=== PATIENT | female | born 1960 | race African-American/Black ===

== ENCOUNTER 2018-05-27 15:50 | Inpatient (IN) | payer MEDICAID, OTHER ==
[~2018-05-27] VITALS: Ht 162.6 cm; Wt 61.2 kg
[2018-05-27] MEDS ORDERED: ASPIRIN 81MG TABLET PO ONE (16:15)
[2018-05-27 17:11] LABS: BASOPHILS % 0.9 % (0.0-2.0); EOSINOPHILS % 0.6 % (0.0-5.0); HEMOGLOBIN. 11.8 g/dL (12.0-16.0); LYMPHOCYTES % 21.4 % (20.0-50.0); MEAN CORPUSCULAR HEMOGLOBIN 26.1 pg (28.0-32.0); MEAN PLATELET VOLUME 8.1 fl (7.4-10.4); MONOCYTES % 13.1 % (2.0-8.0); PLATELET 219 x1000/uL (130-400); RED BLOOD CELL COUNT 4.51 mill/uL (4.2-5.4); RED CELL DISTRIBUTION WIDTH 18.3 % (11.6-14.6)
[2018-05-27 17:20] LABS: CHLORIDE 104 mEq/L (98-107)
[2018-05-27] MEDS ORDERED: FUROSEMIDE 40MG/4ML VIAL IVP ONE (22:00)
[2018-05-28] VITALS: BP 156/86
[2018-05-28] MEDS ORDERED: POTA20TA82 MT (01:16)
[2018-05-28] MEDS ORDERED: ABIL5 MT (01:16)
[2018-05-28] MEDS ORDERED: DOCU100T MT (01:16)
[2018-05-28] MEDS ORDERED: ALBU18HF2 IH (01:16)
[2018-05-28] MEDS ORDERED: ASPI-1158 MT (01:16)
[2018-05-28] MEDS ORDERED: FURO40TA5 MT (01:16)
[2018-05-28] MEDS ORDERED: MULT-1146 MT (01:16)
[2018-05-28] MEDS ORDERED: METF-815 MT (01:16)
[2018-05-28] MEDS ORDERED: CARV3.1242 MT (01:16)
[2018-05-28] MEDS ORDERED: ENAL10TA MT (01:16)
[2018-05-28] MEDS ORDERED: GABA-531 MT (01:16)
[2018-05-28] MEDS ORDERED: FERR325T6 MT (01:16)
[2018-05-28] MEDS ORDERED: ONDANSETRON HCL 4MG/2ML INJ IV PRN (03:30)
[2018-05-28] MEDS ORDERED: ACETAMINOPHEN 650MG/20.3ML UDC PO PRN (03:30)
[2018-05-28] MEDS ORDERED: DEXTROSE 50% WATER 50ML SYRINGE IV PRN (03:30)
[2018-05-28 04:00] VITALS: BP 137/86
[2018-05-28] MEDS ORDERED: IPRATROPIUM/ALBUTEROL 0.5-3(2.5)MG/3ML NEB HHN SCH ×2 (04:00)
[2018-05-28] MEDS: IPRATROPIUM/ALBUTEROL 0.5-3(2.5)MG/3ML NEB HHN SCH ×5 (04:21→21:03)
[2018-05-28] MEDS: INSULIN LISPRO 100 UNITS/ML SUBCUT SCH ×4 (05:28→21:00)
[2018-05-28] MEDS: GABAPENTIN 300MG CAPSULE PO SCH ×3 (05:28→21:24)
[2018-05-28] MEDS: BLOOD SUGAR DIAGNOSTIC STRIP TEST SCH ×4 (05:28→21:24)
[2018-05-28] MEDS: FUROSEMIDE 40MG/4ML VIAL IVP SCH ×3 (05:29→18:03)
[2018-05-28 08:00] VITALS: BP 127/86
[2018-05-28 08:20] LABS: BASOPHILS % 1.1 % (0.0-2.0); EOSINOPHILS % 1.2 % (0.0-5.0); HEMATOCRIT. 34.5 % (36.0-48.0); HEMOGLOBIN. 10.9 g/dL (12.0-16.0); LYMPHOCYTES % 25.5 % (20.0-50.0); MEAN CORPUSCULAR HEMOGLOBIN 25.8 pg (28.0-32.0); MEAN CORPUSCULAR VOLUME 81.5 fL (81.0-99.0); MONOCYTES % 13.4 % (2.0-8.0); NEUTROPHILS % 58.8 % (40.0-76.0); PLATELET 238 x1000/uL (130-400); RED BLOOD CELL COUNT 4.23 mill/uL (4.2-5.4); RED CELL DISTRIBUTION WIDTH 18.7 % (11.6-14.6)
[2018-05-28 08:27] LABS: CHLORIDE 104 mEq/L (98-107)
[2018-05-28] MEDS ORDERED: METFORMIN HCL 500MG TABLET PO SCH (09:00)
[2018-05-28] MEDS ORDERED: POTASSIUM CHLORIDE 20MEQ TABLET SR PO SCH (09:00)
[2018-05-28] MEDS: FERROUS SULFATE 325MG TABLET PO SCH ×2 (09:50→18:02)
[2018-05-28] MEDS: MULTIVITAMINS,THER W-MINERALS TABLET PO SCH (09:50)
[2018-05-28] MEDS: ASPIRIN 81MG TABLET PO SCH (09:51)
[2018-05-28] MEDS: ENALAPRIL 5MG TABLET PO SCH (09:51)
[2018-05-28] MEDS: DOCUSATE SODIUM 100MG CAPSULE PO SCH ×2 (09:51→18:02)
[2018-05-28] MEDS: ENOXAPARIN 40MG/0.4ML SYR SUBCUT SCH (09:59)
[2018-05-28 12:00] VITALS: BP 141/89
[2018-05-28 16:00] VITALS: BP 150/100
[2018-05-28] MEDS: POTASSIUM CHLORIDE 20MEQ TABLET SR PO SCH (18:02)
[2018-05-28 20:00] VITALS: BP 135/97
[2018-05-29] VITALS: BP 122/81
[2018-05-29] MEDS: IPRATROPIUM/ALBUTEROL 0.5-3(2.5)MG/3ML NEB HHN SCH ×6 (00:58→21:40)
[2018-05-29 04:00] VITALS: BP 122/81
[2018-05-29] MEDS: GABAPENTIN 300MG CAPSULE PO SCH ×3 (05:42→21:39)
[2018-05-29] MEDS: FUROSEMIDE 40MG/4ML VIAL IVP SCH ×2 (05:42→17:25)
[2018-05-29] MEDS: BLOOD SUGAR DIAGNOSTIC STRIP TEST SCH ×4 (05:43→21:39)
[2018-05-29] MEDS: INSULIN LISPRO 100 UNITS/ML SUBCUT SCH ×4 (05:51→21:00)
[2018-05-29 07:20] LABS: BASOPHILS % 1.5 % (0.0-2.0); EOSINOPHILS % 1.7 % (0.0-5.0); HEMATOCRIT. 34.7 % (36.0-48.0); LYMPHOCYTES % 34.2 % (20.0-50.0); MEAN CORPUSCULAR HEMOGLOBIN 25.7 pg (28.0-32.0); MEAN CORPUSCULAR VOLUME 81.4 fL (81.0-99.0); MONOCYTES % 11.9 % (2.0-8.0); NEUTROPHILS % 50.7 % (40.0-76.0); RED BLOOD CELL COUNT 4.27 mill/uL (4.2-5.4); RED CELL DISTRIBUTION WIDTH 18.1 % (11.6-14.6)
[2018-05-29 08:00] VITALS: BP 135/84
[2018-05-29] MEDS: DOCUSATE SODIUM 100MG CAPSULE PO SCH ×2 (09:08→17:25)
[2018-05-29] MEDS: FERROUS SULFATE 325MG TABLET PO SCH ×2 (09:09→17:25)
[2018-05-29] MEDS: ENOXAPARIN 40MG/0.4ML SYR SUBCUT SCH (09:09)
[2018-05-29] MEDS: POTASSIUM CHLORIDE 20MEQ TABLET SR PO SCH ×2 (09:09→17:25)
[2018-05-29] MEDS: ASPIRIN 81MG TABLET PO SCH (09:09)
[2018-05-29] MEDS: MULTIVITAMINS,THER W-MINERALS TABLET PO SCH (09:09)
[2018-05-29] MEDS: ENALAPRIL 5MG TABLET PO SCH (09:09)
[2018-05-29 09:28] LABS: PLATELET 223 x1000/uL (130-400)
[2018-05-29 10:11] LABS: CHLORIDE 99 mEq/L (98-107)
[2018-05-29 12:59] VITALS: BP 112/58
[2018-05-29 16:00] VITALS: BP 132/84
[2018-05-29 20:00] VITALS: BP 133/75
[2018-05-30] VITALS: BP 138/86
[2018-05-30] MEDS: IPRATROPIUM/ALBUTEROL 0.5-3(2.5)MG/3ML NEB HHN SCH ×6 (00:34→20:44)
[2018-05-30 04:00] VITALS: BP 138/90
[2018-05-30] MEDS: BLOOD SUGAR DIAGNOSTIC STRIP TEST SCH ×4 (06:51→21:26)
[2018-05-30] MEDS: GABAPENTIN 300MG CAPSULE PO SCH ×3 (06:51→21:28)
[2018-05-30] MEDS: FUROSEMIDE 40MG/4ML VIAL IVP SCH ×2 (06:52→17:58)
[2018-05-30] MEDS: INSULIN LISPRO 100 UNITS/ML SUBCUT SCH ×4 (06:52→21:00)
[2018-05-30 07:21] LABS: CHLORIDE 96 mEq/L (98-107)
[2018-05-30 07:23] LABS: BASOPHILS % 0.6 % (0.0-2.0); EOSINOPHILS % 1.6 % (0.0-5.0); HEMATOCRIT. 31.4 % (36.0-48.0); HEMOGLOBIN. 10.2 g/dL (12.0-16.0); MEAN CORPUSCULAR HEMOGLOBIN 26.1 pg (28.0-32.0); MEAN CORPUSCULAR VOLUME 80.6 fL (81.0-99.0); MEAN PLATELET VOLUME 8.1 fl (7.4-10.4); NEUTROPHILS % 53.8 % (40.0-76.0); PLATELET 224 x1000/uL (130-400); RED CELL DISTRIBUTION WIDTH 17.7 % (11.6-14.6)
[2018-05-30 08:00] VITALS: BP 133/73
[2018-05-30] MEDS: DOCUSATE SODIUM 100MG CAPSULE PO SCH ×2 (08:36→17:58)
[2018-05-30] MEDS: FERROUS SULFATE 325MG TABLET PO SCH ×2 (08:36→17:58)
[2018-05-30] MEDS: ASPIRIN 81MG TABLET PO SCH (08:36)
[2018-05-30] MEDS: ENALAPRIL 5MG TABLET PO SCH (08:36)
[2018-05-30] MEDS: MULTIVITAMINS,THER W-MINERALS TABLET PO SCH (08:36)
[2018-05-30] MEDS: ENOXAPARIN 40MG/0.4ML SYR SUBCUT SCH (08:37)
[2018-05-30] MEDS: POTASSIUM CHLORIDE 20MEQ TABLET SR PO SCH ×2 (08:46→17:58)
[2018-05-30] MEDS ORDERED: CARVEDILOL 3.125 MG TABLET PO NR (09:30)
[2018-05-30 12:00] VITALS: BP 127/78
[2018-05-30 16:00] VITALS: BP 127/83
[2018-05-30 17:24] LABS: *AMPHETAMINES SCREEN URINE NEGATIVE (NEGATIVE); *BARBITURATES SCREEN URINE NEGATIVE (NEGATIVE); *BENZODIAZEPINES SCREEN URINE NEGATIVE (NEGATIVE); *COCAINE SCREEN URINE NEGATIVE (NEGATIVE); METHADONE URINE SCREEN NEGATIVE (NEGATIVE); OPIATES URINE SCREEN NEGATIVE (NEGATIVE)
[2018-05-30 17:25] LABS: CANNABINOID URINE SCREEN NEGATIVE (NEGATIVE); PHENCYCLIDINE URINE SCREEN NEGATIVE (NEGATIVE)
[2018-05-30 20:00] VITALS: BP 126/81
[2018-05-30] MEDS: CARVEDILOL 3.125 MG TABLET PO SCH (21:26)
[2018-05-31] VITALS: BP_SYST 128; BP_SYST 130; BP_DIAS 64; BP_DIAS 78
[2018-05-31] MEDS: IPRATROPIUM/ALBUTEROL 0.5-3(2.5)MG/3ML NEB HHN SCH ×6 (00:29→20:40)
[2018-05-31 04:00] VITALS: BP 124/70
[2018-05-31] MEDS: BLOOD SUGAR DIAGNOSTIC STRIP TEST SCH ×4 (06:13→21:06)
[2018-05-31] MEDS: GABAPENTIN 300MG CAPSULE PO SCH ×3 (06:13→21:06)
[2018-05-31] MEDS: INSULIN LISPRO 100 UNITS/ML SUBCUT SCH ×4 (06:13→21:36)
[2018-05-31] MEDS: FUROSEMIDE 40MG/4ML VIAL IVP SCH ×2 (06:16→17:41)
[2018-05-31 08:00] VITALS: BP 111/62
[2018-05-31] MEDS: POTASSIUM CHLORIDE 20MEQ TABLET SR PO SCH ×2 (09:00→17:41)
[2018-05-31] MEDS: MULTIVITAMINS,THER W-MINERALS TABLET PO SCH (09:00)
[2018-05-31] MEDS: CARVEDILOL 3.125 MG TABLET PO SCH ×2 (09:00→21:06)
[2018-05-31] MEDS: FERROUS SULFATE 325MG TABLET PO SCH ×2 (09:00→17:41)
[2018-05-31] MEDS: ENALAPRIL 5MG TABLET PO SCH (09:00)
[2018-05-31] MEDS: DOCUSATE SODIUM 100MG CAPSULE PO SCH ×2 (09:00→17:00)
[2018-05-31] MEDS: ASPIRIN 81MG TABLET PO SCH (09:00)
[2018-05-31] MEDS: ENOXAPARIN 40MG/0.4ML SYR SUBCUT SCH (09:01)
[2018-05-31 12:00] VITALS: BP 137/86
[2018-05-31 16:00] VITALS: BP 130/85
[2018-05-31 20:00] VITALS: BP 136/76
[2018-06-01] VITALS: BP 128/64
[2018-06-01] MEDS: IPRATROPIUM/ALBUTEROL 0.5-3(2.5)MG/3ML NEB HHN SCH ×7 (00:38→23:22)
[2018-06-01 04:00] VITALS: BP 118/67
[2018-06-01] MEDS: INSULIN LISPRO 100 UNITS/ML SUBCUT SCH ×4 (06:15→20:34)
[2018-06-01] MEDS: FUROSEMIDE 40MG/4ML VIAL IVP SCH ×2 (06:15→18:20)
[2018-06-01] MEDS: BLOOD SUGAR DIAGNOSTIC STRIP TEST SCH ×4 (06:15→20:34)
[2018-06-01] MEDS: GABAPENTIN 300MG CAPSULE PO SCH ×3 (06:15→20:34)
[2018-06-01 06:44] LABS: HEMATOCRIT. 33.4 % (36.0-48.0); HEMOGLOBIN. 10.8 g/dL (12.0-16.0); MEAN CORPUSCULAR VOLUME 80.1 fL (81.0-99.0); MEAN PLATELET VOLUME 7.9 fl (7.4-10.4); PLATELET 228 x1000/uL (130-400); RED BLOOD CELL COUNT 4.17 mill/uL (4.2-5.4); RED CELL DISTRIBUTION WIDTH 17.9 % (11.6-14.6)
[2018-06-01 06:50] LABS: CHLORIDE 97 mEq/L (98-107)
[2018-06-01 08:00] VITALS: BP 122/73
[2018-06-01] MEDS: MULTIVITAMINS,THER W-MINERALS TABLET PO SCH (09:11)
[2018-06-01] MEDS: ENOXAPARIN 40MG/0.4ML SYR SUBCUT SCH (09:11)
[2018-06-01] MEDS: ENALAPRIL 5MG TABLET PO SCH (09:11)
[2018-06-01] MEDS: ASPIRIN 81MG TABLET PO SCH (09:11)
[2018-06-01] MEDS: FERROUS SULFATE 325MG TABLET PO SCH ×2 (09:11→18:19)
[2018-06-01] MEDS: POTASSIUM CHLORIDE 20MEQ TABLET SR PO SCH ×2 (09:11→18:19)
[2018-06-01] MEDS: CARVEDILOL 3.125 MG TABLET PO SCH ×2 (09:11→20:35)
[2018-06-01] MEDS: DOCUSATE SODIUM 100MG CAPSULE PO SCH ×2 (09:12→18:19)
[2018-06-01 12:00] VITALS: BP 125/72
[2018-06-01 13:12] LABS: PLATELET ESTIMATE NORMAL
[2018-06-01 16:00] VITALS: BP 124/81
[2018-06-01 20:00] VITALS: BP 105/61
[2018-06-02] VITALS: BP 116/59
[2018-06-02] MEDS: IPRATROPIUM/ALBUTEROL 0.5-3(2.5)MG/3ML NEB HHN SCH ×5 (02:25→20:18)
[2018-06-02] MEDS: BLOOD SUGAR DIAGNOSTIC STRIP TEST SCH ×4 (06:25→21:00)
[2018-06-02] MEDS: GABAPENTIN 300MG CAPSULE PO SCH ×2 (06:25→21:00)
[2018-06-02] MEDS: INSULIN LISPRO 100 UNITS/ML SUBCUT SCH ×4 (06:25→21:00)
[2018-06-02] MEDS: FUROSEMIDE 40MG/4ML VIAL IVP SCH ×2 (06:25→17:24)
[2018-06-02 08:00] VITALS: BP 121/68
[2018-06-02] MEDS: POTASSIUM CHLORIDE 20MEQ TABLET SR PO SCH ×2 (09:03→17:24)
[2018-06-02] MEDS: ENOXAPARIN 40MG/0.4ML SYR SUBCUT SCH (09:03)
[2018-06-02] MEDS: ENALAPRIL 5MG TABLET PO SCH (09:03)
[2018-06-02] MEDS: FERROUS SULFATE 325MG TABLET PO SCH ×2 (09:04→17:24)
[2018-06-02] MEDS: MULTIVITAMINS,THER W-MINERALS TABLET PO SCH (09:04)
[2018-06-02] MEDS: CARVEDILOL 3.125 MG TABLET PO SCH ×2 (09:04→20:59)
[2018-06-02] MEDS: DOCUSATE SODIUM 100MG CAPSULE PO SCH ×2 (09:04→17:24)
[2018-06-02] MEDS: ASPIRIN 81MG TABLET PO SCH (09:04)
[2018-06-02 12:00] VITALS: BP 121/71
[2018-06-02 16:00] VITALS: BP 117/76
[2018-06-02 20:00] VITALS: BP 113/70
[2018-06-03] VITALS: BP 125/69
[2018-06-03] MEDS: IPRATROPIUM/ALBUTEROL 0.5-3(2.5)MG/3ML NEB HHN SCH ×5 (01:04→16:35)
[2018-06-03 04:00] VITALS: BP 124/61
[2018-06-03] MEDS: GABAPENTIN 300MG CAPSULE PO SCH ×2 (06:37→13:35)
[2018-06-03] MEDS: INSULIN LISPRO 100 UNITS/ML SUBCUT SCH ×3 (06:38→17:15)
[2018-06-03] MEDS: BLOOD SUGAR DIAGNOSTIC STRIP TEST SCH ×3 (06:38→17:28)
[2018-06-03] MEDS: FUROSEMIDE 40MG/4ML VIAL IVP SCH ×2 (06:38→17:01)
[2018-06-03 08:00] VITALS: BP 126/78
[2018-06-03] MEDS: MULTIVITAMINS,THER W-MINERALS TABLET PO SCH (08:38)
[2018-06-03] MEDS: POTASSIUM CHLORIDE 20MEQ TABLET SR PO SCH ×2 (08:38→17:00)
[2018-06-03] MEDS: FERROUS SULFATE 325MG TABLET PO SCH ×2 (08:38→17:05)
[2018-06-03] MEDS: DOCUSATE SODIUM 100MG CAPSULE PO SCH ×2 (08:38→17:00)
[2018-06-03] MEDS: CARVEDILOL 3.125 MG TABLET PO SCH (08:38)
[2018-06-03] MEDS: ASPIRIN 81MG TABLET PO SCH (08:38)
[2018-06-03] MEDS: ENOXAPARIN 40MG/0.4ML SYR SUBCUT SCH (08:39)
[2018-06-03] MEDS: ENALAPRIL 5MG TABLET PO SCH (08:39)
[2018-06-03 12:00] VITALS: BP 118/61
[2018-06-03 16:00] VITALS: BP 129/69
== END 2018-06-03 19:30 | DRG 194 ==
LOC: ER 15:50 → 5WST 22:11 → EDBEDREQ 22:14 → EDBEDREQTM 22:14 → ENRESERV 22:27
PROVIDERS: ADMIT Internal Medicine; ATTEND Internal Medicine
DX: I11.0 Hypertensive heart disease with heart failure (principal); E43 Unspecified severe protein-calorie malnutrition; I42.9 Cardiomyopathy, unspecified; I08.1 Rheumatic disorders of both mitral and tricuspid valves; E11.9 Type 2 diabetes mellitus without complications; E78.5 Hyperlipidemia, unspecified; E66.9 Obesity, unspecified; I25.10 Atherosclerotic heart disease of native coronary artery without angina pectoris; I48.91 Unspecified atrial fibrillation; J44.9 Chronic obstructive pulmonary disease, unspecified; F41.9 Anxiety disorder, unspecified; Z59.0 Homelessness; I25.2 Old myocardial infarction; Z79.899 Other long term (current) drug therapy; Z87.891 Personal history of nicotine dependence; Z68.23 Body mass index [BMI] 23.0-23.9, adult; Z79.84 Long term (current) use of oral hypoglycemic drugs; I50.23 Acute on chronic systolic (congestive) heart failure
CPT/HCPCS: 36415; 71045; 80048; 80305; 82962; 83735; 83880; 84484; 93005; 93306; 94640; 97162; 97535; 99285; J1650; J1815; J1940; J7620; A4315